=== PATIENT | female | born 1960 | race Caucasian/White ===

== ENCOUNTER → 2018-03-29 09:54 | Outpatient (CLI) | payer BC, SELFPAY ==
[2018-03-29 10:09] LABS: RBC Urine None Seen (0-5/HPF)
[2018-03-29 10:35] LABS: Add Manual Diff / Slide Review NO; Appearance Urine UA SL CLOUDY; Basophils Percent Auto 0.6 % (0-2); Bilirubin Urine UA NEGATIVE (NEGATIVE); Color Urine UA YELLOW; Eosinophils Percent Auto 1.5 % (2-4); Glucose Urine UA NEGATIVE (Normal); Hemoglobin 13.6 g/dL (12.0-16.0); Ketones Urine UA 1+ (NEGATIVE); Leukocyte Esterase Urine UA NEGATIVE (NEGATIVE); Lymphocytes Percent Auto 11.1 % (25-40); Mean Corpuscular HGB Conc 34.1 % (30-36); Mean Corpuscular Hemoglobin 33.4 PG (26-34); Monocytes Percent Auto 7.1 % (3-14); Neutrophils Absolute Auto 5800 /uL (3000-5900); Neutrophils Percent Auto 79.7 % (50-75); Nitrite Urine UA Negative (Negative); Occult Blood Urine UA NEGATIVE (Negative); Platelet Count 249 X10^3/uL (150-400); Protein Urine UA 2+ (Negative); Red Blood Cell Count 4.08 X10^6/uL (4.0-5.2); Red Cell Distribution Width 14.2 % (11.6-14.8); Specific Gravity Urine UA >=1.030 (1.000-1.035); Urobilinogen Urine UA 0.2 E.U./dL (0.2); White Blood Cell Count 7.3 X10^3/uL (4.5-11.0)
[2018-03-29 10:49] LABS: Amorphous Sediment Urine 1+; Bacteria Urine Moderate (10-30); Squamous Epithelial Cell Urine 10-30 /HPF; WBC Urine 10-30/HPF (0-5/HPF)
[2018-03-29 10:50] LABS: Culture Indicated Urine Cult Not Indicated; Mucus Urine 3+ (Negative)
[2018-03-29 11:05] LABS: Alanine Aminotransferase 28 IU/L (9-52); Albumin 4.5 g/dL (3.5-5.0); Albumin Globulin Ratio 0.9 (1.0-2.8); Alkaline Phosphatase 114 U/L (38-126); Aspartate Aminotransferase 29 IU/L (14-36); BUN Creatinine Ratio 24.4 (6-22); Bilirubin Total 0.7 mg/dL (0.2-1.3); Blood Urea Nitrogen 22 mg/dL (7-17); Calcium 9.6 mg/dL (8.4-10.2); Carbon Dioxide 27 mmol/L (22-32); Chloride 101 mmol/L (98-107); Cholesterol 170 mg/dL (140-199); Estimated Glomerular Filt Rate > 60.0 mL/min (>60); Globulin 4.9 g/dL (1.7-4.1); Glucose 79 mg/dL (70-100); HDL Cholesterol 92 mg/dL (40-60); HEMOLYSIS 18 (0-50); LDL Cholesterol Calculated 43 mg/dL (<100); Potassium 4.6 mmol/L (3.4-5.1); Sodium 142 mmol/L (137-145); Total Protein 9.4 g/dL (6.3-8.2); Triglycerides 177 mg/dL (35-150)
[2018-03-29 11:32] LABS: Creatinine Urine Random 453.6 mg/dL; Microalbumi Creatinin Ratio Ur 70.9 ug/mg CR (<30); Microalbumin Urine Random 32.2 mg/dL (0-1.6)
[2018-03-29 11:33] LABS: Thyroid Stimulating Hormone 3.27 uIU/mL (0.47-4.68)
== END ==
PROVIDERS: PCP Family Medicine; Visit Provider Dermatology
DX: K50.90 Crohn's disease, unspecified, without complications (principal); Z51.81 Encounter for therapeutic drug level monitoring; Z13.29 Encounter for screening for other suspected endocrine disorder
CPT/HCPCS: 36415; 80053; 80061; 81001; 82043; 82570; 84443; 85025

== ENCOUNTER → 2018-06-12 18:15 | Outpatient (CLI) | payer BC, SELFPAY | PROVIDERS: PCP Family Medicine; Visit Provider Physician Assistant | DX: R30.0 Dysuria (principal) | CPT/HCPCS: 87077; 87086 ==

== ENCOUNTER → 2018-07-17 14:03 | Outpatient (CLI) | payer BC, SELFPAY | PROVIDERS: PCP Family Medicine; Visit Provider Nurse Practitioner Family | DX: Z79.899 Other long term (current) drug therapy (principal) | CPT/HCPCS: 93005 ==

== ENCOUNTER → 2018-12-09 12:46 | Outpatient (CLI) | payer BC, SELFPAY ==
[2018-12-09 13:53] LABS: Add Manual Diff / Slide Review NO; Basophils Absolute Auto 100 /uL (0-100); Basophils Percent Auto 0.8 % (0-2); Eosinophils Absolute Auto 100 /uL (0-450); Eosinophils Percent Auto 1.9 % (2-4); Hematocrit 40.6 % (36-46); Hemoglobin 13.8 g/dL (12.0-16.0); Lymphocytes Absolute Auto 1900 /uL (1100-4500); Lymphocytes Percent Auto 30.6 % (25-40); Mean Corpuscular HGB Conc 33.9 % (30-36); Mean Corpuscular Hemoglobin 32.7 PG (26-34); Mean Corpuscular Volume 96.4 fL (80-100); Monocytes Absolute Auto 600 /uL (0-900); Monocytes Percent Auto 9.6 % (3-14); Neutrophils Absolute Auto 3600 /uL (1500-7000); Neutrophils Percent Auto 57.1 % (50-75); Platelet Count 216 X10^3/uL (150-400); Red Blood Cell Count 4.22 X10^6/uL (4.0-5.2); Red Cell Distribution Width 13.6 % (11.6-14.8); White Blood Cell Count 6.3 X10^3/uL (4.5-11.0)
[2018-12-09 14:07] LABS: Alanine Aminotransferase 37 IU/L (9-52); Albumin 4.3 g/dL (3.5-5.0); Alkaline Phosphatase 83 U/L (38-126); Aspartate Aminotransferase 34 IU/L (14-36); BUN Creatinine Ratio 35.7 (6-22); Bilirubin Total 0.5 mg/dL (0.2-1.3); Bilirubin Unconjugated 0.2 mg/dL (0.0-1.1); Blood Urea Nitrogen 25 mg/dL (7-17); Calcium 9.1 mg/dL (8.4-10.2); Carbon Dioxide 27 mmol/L (22-32); Chloride 98 mmol/L (98-107); Estimated Glomerular Filt Rate > 60.0 mL/min (>60); Globulin 4.4 g/dL (1.7-4.1); Glucose 82 mg/dL (70-100); HEMOLYSIS 23 (0-50); Potassium 4.5 mmol/L (3.4-5.1); Sodium 136 mmol/L (137-145); Total Protein 8.7 g/dL (6.3-8.2)
== END ==
PROVIDERS: PCP Family Medicine; Visit Provider Dermatology
DX: L40.0 Psoriasis vulgaris (principal)
CPT/HCPCS: 36415; 80053; 80076; 85025

== ENCOUNTER 2018-12-24 12:42 | Emergency (ER) | payer BC, SELFPAY ==
[2018-12-24 12:59] VITALS: BP 104/74; PULSE 119; RESP 18; TEMP 36.9; O2SAT 90
[2018-12-24 13:37] LABS: Add Manual Diff / Slide Review NO; Basophils Absolute Auto 0 /uL (0-100); Basophils Percent Auto 0.3 % (0-2); Eosinophils Absolute Auto 0 /uL (0-450); Eosinophils Percent Auto 0.4 % (2-4); Hematocrit 42.2 % (36-46); Hemoglobin 14.2 g/dL (12.0-16.0); Lymphocytes Absolute Auto 1100 /uL (1100-4500); Lymphocytes Percent Auto 11.5 % (25-40); Mean Corpuscular HGB Conc 33.7 % (30-36); Mean Corpuscular Hemoglobin 32.1 PG (26-34); Mean Corpuscular Volume 95.4 fL (80-100); Monocytes Absolute Auto 600 /uL (0-900); Neutrophils Absolute Auto 7800 /uL (1500-7000); Neutrophils Percent Auto 81.8 % (50-75); Platelet Count 171 X10^3/uL (150-400); Red Blood Cell Count 4.43 X10^6/uL (4.0-5.2); Red Cell Distribution Width 13.4 % (11.6-14.8); White Blood Cell Count 9.5 X10^3/uL (4.5-11.0)
--- NOTE | 2018-12-24 13:41 | DI.RAD.S_ITS ---
PROCEDURE: XR CHEST 1V INDICATIONS: cough, fever, chills TECHNIQUE: One view of the chest was acquired. COMPARISON: None. FINDINGS: Surgical changes and devices: None. Lungs and pleura: Mild diffuse right greater than left reticular nodular pulmonary density.. No pleural effusions or pneumothorax. Mediastinum: Mediastinal contours appear normal. Heart size is normal. Bones and chest wall: No suspicious bony lesions. Overlying soft tissues appear unremarkable. IMPRESSION: Mild atypical pneumonia. Dictated by: Juhi Ayala M.D. on 12/24/2018 at 13:58 Approved by: Juhi Ayala M.D. on 12/24/2018 at 13:58
[2018-12-24 13:51] LABS: Alanine Aminotransferase 28 IU/L (9-52); Albumin 4.3 g/dL (3.5-5.0); Albumin Globulin Ratio 0.9 (1.0-2.8); Alkaline Phosphatase 112 U/L (38-126); Aspartate Aminotransferase 43 IU/L (14-36); BUN Creatinine Ratio 34.5 (6-22); Bilirubin Total 0.5 mg/dL (0.2-1.3); Blood Urea Nitrogen 38 mg/dL (7-17); Calcium 8.9 mg/dL (8.4-10.2); Carbon Dioxide 29 mmol/L (22-32); Chloride 95 mmol/L (98-107); Estimated Glomerular Filt Rate 51.4 mL/min (>60); Glucose 166 mg/dL (70-100); HEMOLYSIS < 15 (0-50); Lactate (Lactic Acid) 1.6 mmol/L (0.7-2.1); Sodium 137 mmol/L (137-145); Total Protein 9.3 g/dL (6.3-8.2)
--- NOTE | 2018-12-24 13:53 | ED_ITS ---
HPI - SOB/Dyspnea General Chief Complaint: Shortness of Breath/Dyspnea Stated Complaint: COUGH,FEVER NOT EATING WELL Time Seen by Provider: 12/24/18 13:08 Source: patient Mode of arrival: ambulatory Limitations: no limitations History of Present Illness 58-year-old female former smoker with history of severe Crohn's disease requiring ileostomy on immunosuppressive therapy presents with 1 week of worsening fever, chills as well as nausea, vomiting, diarrhea and cough with shortness of breath. She has had a profoundly decreased appetite and is now dizzy, weak and has trouble ambulating. She has been exposed to other ill persons and waited until today because she was hoping she would just get over it. MD Complaint: shortness of breath and cough Onset (ago): day(s) Context: recent illness Severity: moderate Consistency/Duration: constant Relieving factors: nothing Exacerbating factors: exertion Treatment prior to arrival: none Related Data Home oxygen amount: none Home Medications Medication Instructions Recorded Confirmed methadone 10 mg tablet 40 mg PO BID #0 tab 03/08/18 12/24/18 erythromycin with ethanol 1 applic TOPICAL [id number] 12/24/18 12/24/18 trazodone 25 mg PO BEDTIME 12/24/18 12/24/18 Previous Rx's Medication Instructions Recorded albuterol sulfate 1 puff INHALATION Q4-6H PRN #8.5 12/24/18 gram azithromycin See Rx Instructions .ROUTE 12/24/18 .COMPLEX #6 tab ondansetron 4 mg PO TID-QID PRN #10 tab 12/24/18 Allergies Allergy/AdvReac Type Severity Reaction Status Date / Time acetaminophen [From VICODIN] Allergy Unknown Verified 12/24/18 12:59 clonazepam [From KLONOPIN] Allergy Unknown Verified 12/24/18 12:59 codeine [CODEINE] Allergy Unknown Verified 12/24/18 12:59 doxycycline [DOXYCYCLINE] Allergy Unknown Verified 12/24/18 12:59 droperidol [From Inapsine] Allergy Unknown Verified 12/24/18 13:30 hydrocodone [From VICODIN] Allergy Unknown Verified 12/24/18 12:59 levofloxacin [From Levaquin] Allergy Unknown Verified 12/24/18 13:30 meperidine [From DEMEROL] Allergy Unknown Verified 12/24/18 12:59 metoclopramide Allergy Unknown Verified 12/24/18 12:59 [METOCLOPRAMIDE] NSAIDS (Non-Steroidal Allergy Unknown Verified 12/24/18 12:59 Anti-Inflamma [NSAIDS (NON-STEROIDAL ANTI-INFLAMMA] prochlorperazine Allergy Unknown Verified 12/24/18 12:59 [From COMPAZINE] Review of Systems Constitutional Reports chills, Reports fever(s), Denies lethargy and Reports weakness Eyes Denies change in vision, Denies eye discharge, Denies irritation and Denies loss of vision ENT Ears, Nose, Mouth, and Throat: Denies change in voice, Denies neck pain and Denies sore throat Cardiovascular Denies chest pain, Denies irregular heart rhythm, Denies lightheadedness, Denies palpitations, Reports dyspnea, Denies dyspnea on exertion and Denies orthopnea Respiratory Reports cough, Reports dyspnea, Denies dyspnea on exertion and Denies wheezing Gastrointestinal Gastrointestinal: Denies abdominal pain, Denies change in bowel habits, Reports diarrhea, Reports nausea and Reports vomiting Genitourinary Denies hematuria, Denies flank pain, Denies urinary incontinence and Denies urinary urgency Musculoskeletal Denies neck pain Integumentary/Breasts Denies pruritus, Denies erythema, Denies rash and Denies wounds Neurologic Denies confusion, Denies loss of vision and Reports weakness Psychiatric Denies anxiety, Denies confusion, Denies depression, Denies homicidal ideation and Denies suicidal ideation Endocrine Denies palpitations Hematologic/Lymphatic Denies easy bruising Allergic/Immunologic Denies wheezing [facility] Medical History Allergic rhinitis (Chronic) Crohns disease (Chronic Unknown) Lumbar disc disease (Chronic) Migraines (Chronic) Psoriasis (Chronic) Anemia (Resolved) Deep vein thrombosis (Resolved) GI bleed (Resolved) MRSA (methicillin resistant Staphylococcus aureus) (Resolved) Pulmonary embolism (Resolved) SBO (small bowel obstruction) (Resolved) Septic arthritis (Resolved) Shoulder pain (Resolved) Surgical History History of spinal fusion (Resolved) Hx of cholecystectomy (Resolved) Hx of colectomy (Resolved) Hx of hysterectomy (Resolved) Hx of surgical procedure (Resolved) Family History Father Diabetes mellitus Heart disease Hypertension Hyperlipidemia Mother No problems noted. Grandmother Cancer Social History Smoking Status: Former smoker Family History Father Diabetes mellitus Heart disease Hypertension Hyperlipidemia Mother No problems noted. Grandmother Cancer Social History Smoking Status: Former smoker Exam Narrative Exam Narrative: GENERAL: 58F appears older than stated age, ill-appearing, some increased work of breathing and dry mucous membranes HEAD: Atraumatic. Normocephalic. No temporal or scalp tenderness. EYES: Pupils equal round and reactive. Extraocular motions intact. No scleral icterus. No injection or drainage. ENT: Dry mucous membranes. Nose without bleeding, purulent drainage or septal hematoma. Throat without erythema, tonsillar hypertrophy or exudate. Uvula midline. Airway patent. NECK: Trachea midline. No JVD or lymphadenopathy. Supple, nontender, no meningeal signs. CARDIOVASCULAR: Regular rate and rhythm without murmurs, gallops, or rubs. RESPIRATORY: Rhonchorous breath sounds with some prolonged expiratory phase and mild expiratory wheeze. Mildly tachypneic GASTROINTESTINAL: Abdomen soft, non-tender, nondistended. No hepato- splenomegaly, or palpable masses. No guarding. EXTREMITIES: No clubbing, cyanosis, or edema. No joint tenderness, effusion, or edema noted. BACK: Nontender without deformity or crepitance. No flank tenderness. NEURO: AOx3. SKIN: No rash or erythema. Initial Vital Signs Initial Vital Signs: Vital Signs Temperature 98.5 F 12/24/18 12:59 Pulse Rate 119 H 12/24/18 12:59 Respiratory Rate 18 12/24/18 12:59 Blood Pressure 104/74 12/24/18 12:59 Pulse Oximetry 90 L 12/24/18 12:59 Course Orders Ordered: ED Orders 12/24/18 13:25 Complete Blood Count AUTO DIFF Stat Comprehensive Metabolic Panel Stat Lactate (Lactic Acid) Stat Procalcitonin Stat 12/24/18 13:41 XR chest 1V Stat 12/24/18 13:55 Blood Culture Stat 12/24/18 14:05 Influenza A and B by PCR Rapid Stat Discontinued Medications Albuterol (Ventolin) 2.5 mg INH [id number] PRN PRN Reason: Shortness Of Breath Last Admin: 12/24/18 16:23 Dose: 2.5 mg Sodium Chloride (Normal Saline 0.9%) 1,000 mls @ 1,000 mls/hr IV BOLUS ONE Stop: 12/24/18 14:24 Last Infusion: 12/24/18 15:30 Dose: 0 mls/hr Admin: 12/24/18 14:21 Dose: 1,000 mls/hr Sodium Chloride (Normal Saline 0.9%) 1,000 mls @ 1,000 mls/hr IV BOLUS ONE Stop: 12/24/18 16:51 Last Infusion: 12/24/18 16:47 Dose: 0 mls/hr Admin: 12/24/18 15:45 Dose: 1,000 mls/hr Ondansetron HCl (Zofran) 4 mg IV Q4HR PRN PRN Reason: Nausea And Vomiting Reevaluation(s) Reevaluation #1: Patient feeling much better after the above-stated therapies. Vital Signs - 8 hr 12/24/18 12:59 12/24/18 14:00 12/24/18 15:00 Temperature 98.5 F Pulse Rate 119 H 89 79 Respiratory Rate 18 20 16 Blood Pressure 104/74 Blood Pressure [Right Arm] 99/72 103/73 Pulse Oximetry 90 L 94 12/24/18 16:23 12/24/18 16:47 Temperature Pulse Rate 87 78 Respiratory Rate 21 Blood Pressure Blood Pressure [Right Arm] 106/63 Pulse Oximetry 93 94 MDM - SOB/Dyspnea Lab Data Result diagrams: 12/24/18 13:25 12/24/18 13:25 Lab Results 12/24/18 12/24/18 12/24/18 Range/Units 13:25 13:25 13:25 WBC 9.5 (4.5-11.0) X10^3/uL RBC 4.43 (4.0-5.2) X10^6/uL Hgb 14.2 (12.0-16.0) g/dL Hct 42.2 (36-46) % MCV 95.4 (80-100) fL MCH 32.1 (26-34) PG MCHC 33.7 (30-36) % RDW 13.4 (11.6-14.8) % Plt Count 171 (150-400) X10^3/uL Neut % (Auto) 81.8 H (50-75) % Lymph % (Auto) 11.5 L (25-40) % Sebastian % (Auto) 6.0 (3-14) % Eos % (Auto) 0.4 L (2-4) % Baso % (Auto) 0.3 (0-2) % Neut # (Auto) 7800 H (7623-6527) /uL Lymph # (Auto) 1100 (5687-1362) /uL Sebastian # (Auto) 600 (0-900) /uL Eos # (Auto) 0 (0-450) /uL Baso # (Auto) 0 (0-100) /uL Sodium 137 (137-145) mmol/L Potassium 4.0 (3.4-5.1) mmol/L Chloride 95 L (98-107) mmol/L Carbon Dioxide 29 (22-32) mmol/L BUN 38 H (7-17) mg/dL Creatinine 1.10 H (0.52-1.04) mg/dL Estimated GFR 51.4 L (>60) mL/min BUN/Creatinine Ratio 34.5 H (6-22) Glucose 166 H (70-100) mg/dL Lactate (0.7-2.1) mmol/L Calcium 8.9 (8.4-10.2) mg/dL Total Bilirubin 0.5 (0.2-1.3) mg/dL AST 43 H (14-36) IU/L ALT 28 (9-52) IU/L Alkaline Phosphatase 112 (38-126) U/L Total Protein 9.3 H (6.3-8.2) g/dL Albumin 4.3 (3.5-5.0) g/dL Globulin 5.0 H (1.7-4.1) g/dL Albumin/Globulin Ratio 0.9 L (1.0-2.8) Procalcitonin < 0.05 (<0.5) ng/mL Influenza A & B (PCR) (Negative) 12/24/18 12/24/18 Range/Units 13:25 14:05 WBC (4.5-11.0) X10^3/uL RBC (4.0-5.2) X10^6/uL Hgb (12.0-16.0) g/dL Hct (36-46) % MCV (80-100) fL MCH (26-34) PG MCHC (30-36) % RDW (11.6-14.8) % Plt Count (150-400) X10^3/uL Neut % (Auto) (50-75) % Lymph % (Auto) (25-40) % Sebastian % (Auto) (3-14) % Eos % (Auto) (2-4) % Baso % (Auto) (0-2) % Neut # (Auto) (9633-9011) /uL Lymph # (Auto) (3817-8939) /uL Sebastian # (Auto) (0-900) /uL Eos # (Auto) (0-450) /uL Baso # (Auto) (0-100) /uL Sodium (137-145) mmol/L Potassium (3.4-5.1) mmol/L Chloride (98-107) mmol/L Carbon Dioxide (22-32) mmol/L BUN (7-17) mg/dL Creatinine (0.52-1.04) mg/dL Estimated GFR (>60) mL/min BUN/Creatinine Ratio (6-22) Glucose (70-100) mg/dL Lactate 1.6 (0.7-2.1) mmol/L Calcium (8.4-10.2) mg/dL Total Bilirubin (0.2-1.3) mg/dL AST (14-36) IU/L ALT (9-52) IU/L Alkaline Phosphatase (38-126) U/L Total Protein (6.3-8.2) g/dL Albumin (3.5-5.0) g/dL Globulin (1.7-4.1) g/dL Albumin/Globulin Ratio (1.0-2.8) Procalcitonin (<0.5) ng/mL Influenza A & B (PCR) Negative (Negative) Discharge Plan Departure Patient Disposition: Home Clinical Impression: Gastroenteritis, Atypical pneumonia Discharge Date/Time: 12/24/18 16:40 Interventions: ED Discharge Assessment Last Done: 12/24/18 16:56 Instructions: DI for Atypical Pneumonia Activity Restrictions/Additional Instructions: 1. Drink plenty of fluids with frequent small sips. 2. For the next 24 hours a clear liquid diet is advised. After that please employ a brat diet which would include bananas, rice, apples, toast. 3. Please take medications as directed. Her prescriptions have been electronically transmitted to [facility] at your request 4. Please follow-up with your doctor in the next 1-2 days. Call the office for an appointment. 5. Please return to the emergency Department for any worsening or persistent symptoms, such as increasing pain or fever. Prescriptions: New azithromycin 250 mg tablet See Rx Instructions .ROUTE .COMPLEX Qty: 6 RF: 0 ondansetron 4 mg tablet,disintegrating 4 mg PO TID-QID PRN (Reason: nausea and vomiting) Qty: 10 RF: 0 albuterol sulfate 90 mcg/actuation HFA aerosol inhaler 1 puff INHALATION Q4-6H PRN (Reason: shortness of breath or wheezing) Qty: 8.5 RF: 0 No Action methadone 10 mg tablet 40 mg PO BID Qty: 0 RF: 0 trazodone 50 mg tablet 25 mg PO BEDTIME RF: 0 erythromycin with ethanol 2 % solution 1 applic topical [id number] RF: 0 Referrals: Maggy Salazar, [Primary Care Provider] - Stand Alone Forms: Work Release Note
[2018-12-24 14:00] VITALS: BP 99/72; PULSE 89; RESP 20
[2018-12-24 14:05] LABS: Procalcitonin < 0.05 ng/mL (<0.5)
[2018-12-24] MEDS: SODIUM CHLORIDE 0.9% 1,000 ML 1000 ML IV ×2 (14:21→15:45)
[2018-12-24 14:30] LABS: Influenza A and B by PCR Rapid Negative (Negative)
[2018-12-24 15:00] VITALS: BP 103/73; PULSE 79; RESP 16; O2SAT 94
[2018-12-24 16:23] VITALS: PULSE 87; O2SAT 93
[2018-12-24] MEDS: ALBUTEROL 2.5 MG/3 ML NEB (ADULT) INH (16:23)
[2018-12-24 16:47] VITALS: BP 106/63; PULSE 78; RESP 21; O2SAT 94
== END 2018-12-24 16:40 | disposition home or self-care (01) ==
PROVIDERS: Emergency Provider Emergency Medicine; PCP Family Medicine
DX: J18.9 Pneumonia, unspecified organism (principal)
CPT/HCPCS: 36591; 71045; 80053; 83605; 84145; 85025; 87040; 87400; 94640; 96360; 96361; 99283; 99284; J7613

== ENCOUNTER → 2019-12-02 12:00 | Outpatient (CLI) | payer OTHER, SELFPAY ==
--- NOTE | 2019-12-02 12:03 | DI.RAD.S_ITS ---
PROCEDURE: XR CHEST 2V INDICATIONS: LLobe crackles and wheeze, r/o pneumonia TECHNIQUE: 2 views of the chest were acquired. COMPARISON: [facility], CR, XR CHEST 1V, 12/24/2018, 13:45. FINDINGS: Surgical changes and devices: None. Lungs and pleura: Lungs are clear. No pleural effusions or pneumothorax. Mediastinum: Mediastinal contours are normal. Heart size is normal. Bones and chest wall: No suspicious bony abnormalities. Soft tissues appear unremarkable. IMPRESSION: Relatively large lung volumes, suspect COPD, but no pneumonia found. Dictated by: Bhavin Roberts M.D. on 12/02/2019 at 12:48 Approved by: Bhavin Roberts M.D. on 12/02/2019 at 12:48
== END ==
PROVIDERS: PCP Family Medicine; Referring Provider Nurse Practitioner; Visit Provider Nurse Practitioner
DX: R06.2 Wheezing (principal)
CPT/HCPCS: 71046

== ENCOUNTER 2020-01-26 18:32 | Emergency (ER) | payer OTHER, SELFPAY ==
[2020-01-26 18:36] VITALS: BP 167/106; PULSE 86; RESP 18; TEMP 36.6; O2SAT 99
--- NOTE | 2020-01-26 18:50 | ED_ITS ---
HPI - Extremity Injury (Upper) General Chief Complaint: Extremity Injury, Upper Stated Complaint: Sharp pains shooting up L side of neck and arm Time Seen by Provider: 01/26/20 18:47 Source: patient Mode of arrival: Ambulatory Limitations: no limitations History of Present Illness HPI narrative: 59-year-old female smoker with history of DVT, PE and Crohn's presents with a chief complaint of a sudden onset pain in her left medial arm into her anterior neck this evening at about 6:00 p.m.. The pain comes and goes , is sharp and stabbing in nature and has no provocation or palliation. She denies any neurologic symptoms such as blurred vision, trouble with speech nor chest pain or shortness of breath. She is not dizzy nor weak or lightheaded. Over the past weeks to months she has become increasingly hypertensive and today's diastolic of 106 is the high she has ever had. She is asymptomatic on my exam MD complaint: injury to: left Onset (ago): hour(s) Other injuries: none Handedness: right Associated symptoms: denies other symptoms Related Data Home Medications Medication Instructions Recorded Confirmed methadone 10 mg tablet 40 mg PO BID #0 tab 03/08/18 12/02/19 erythromycin with ethanol 1 applic TOPICAL [id number] 12/24/18 12/02/19 trazodone 25 mg PO BEDTIME 12/24/18 12/02/19 Previous Rx's Medication Instructions Recorded albuterol sulfate 1 puff INHALATION Q4-6H PRN #8.5 12/24/18 gram ondansetron 4 mg PO TID-QID PRN #10 tab 12/24/18 azithromycin 250 mg tablet See Rx Instructions PO .COMPLEX #6 12/02/19 tab Allergies Allergy/AdvReac Type Severity Reaction Status Date / Time acetaminophen [From VICODIN] Allergy Unknown Verified 12/02/19 11:07 clonazepam [From KLONOPIN] Allergy Unknown Verified 12/02/19 11:07 codeine [CODEINE] Allergy Unknown Verified 12/02/19 11:07 doxycycline [DOXYCYCLINE] Allergy Unknown Verified 12/02/19 11:07 droperidol [From Inapsine] Allergy Unknown Verified 12/02/19 11:07 hydrocodone [From VICODIN] Allergy Unknown Verified 12/02/19 11:07 levofloxacin [From Levaquin] Allergy Unknown Verified 12/02/19 11:07 meperidine [From DEMEROL] Allergy Unknown Verified 12/02/19 11:07 metoclopramide Allergy Unknown Verified 12/02/19 11:07 [METOCLOPRAMIDE] NSAIDS (Non-Steroidal Allergy Unknown Verified 12/02/19 11:07 Anti-Inflamma [NSAIDS (NON-STEROIDAL ANTI-INFLAMMA] prochlorperazine Allergy Unknown Verified 12/02/19 11:07 [From COMPAZINE] Review of Systems Constitutional Constitutional: Denies chills, Denies fatigue, Denies fever(s), Denies frequent falls, Denies lethargy and Denies weakness Eyes Eyes: Denies change in vision, Denies eye discharge, Denies irritation and De nies loss of vision ENT Ears, Nose, Mouth, and Throat: Denies change in voice, Denies dizziness, Reports neck pain (Episodic anterior), Denies sore throat and Denies throat swelling Cardiovascular Cardiovascular: Denies chest pain, Denies irregular heart rhythm, Denies lightheadedness, Denies palpitations, Denies dyspnea, Denies dyspnea on exertion and Denies orthopnea Respiratory Respiratory: Denies cough, Denies dyspnea, Denies dyspnea on exertion and Denies wheezing Gastrointestinal Gastrointestinal: Denies abdominal pain, Denies change in bowel habits, Denies diarrhea, Denies nausea and Denies vomiting Genitourinary Genitourinary: Denies hematuria, Denies flank pain, Denies urinary incontinence and Denies urinary urgency Musculoskeletal Musculoskeletal: Denies back pain, Denies muscle weakness, Reports neck pain (Episodic anterior), Denies numbness, Reports radiating pain into limb and Denies tingling Integumentary/Breasts Skin/Breast: Denies pruritus, Denies erythema, Denies rash and Denies wounds Neurologic Neurologic: Denies behavioral changes, Denies confusion, Denies dizziness, Denies frequent falls, Denies loss of vision, Denies numbness, Denies tingling and Denies weakness Psychiatric Psychiatric: Denies anxiety, Denies behavioral changes, Denies confusion, Denies depression, Denies homicidal ideation and Denies suicidal ideation Endocrine Endocrine: Denies fatigue, Denies flushing and Denies palpitations Hematologic/Lymphatic Hematologic/Lymphatic: Denies easy bruising Allergic/Immunologic Allergic/Immunologic: Denies urticaria, Denies throat swelling and Denies wheezing Patient History Medical History Allergic rhinitis (Chronic) Anemia (Resolved) Crohns disease (Chronic Unknown) Deep vein thrombosis (Resolved) GI bleed (Resolved) Lumbar disc disease (Chronic) Migraines (Chronic) MRSA (methicillin resistant Staphylococcus aureus) (Resolved) Psoriasis (Chronic) Pulmonary embolism (Resolved) SBO (small bowel obstruction) (Resolved) Septic arthritis (Resolved) Shoulder pain (Resolved) Surgical History History of spinal fusion (Resolved) Hx of cholecystectomy (Resolved) Hx of colectomy (Resolved) Hx of hysterectomy (Resolved) Hx of surgical procedure (Resolved) Family History Father Diabetes mellitus Heart disease Hypertension Hyperlipidemia Mother No problems noted. Grandmother Cancer Social History Smoking Status: Current some day smoker Smoking Status: Current some day smoker Exam Narrative Exam Narrative: GENERAL: [59] year old patient appears stated age. Well- nourished, well-developed patient, in mild distress. HEAD: Atraumatic. Normocephalic. EYES: Pupils equal round and reactive. Extraocular motions intact. No scleral icterus. No injection or drainage. ENT: Nose without bleeding, purulent drainage. Throat without erythema, tonsillar hypertrophy or exudate. Airway patent. NECK: Trachea midline. Non tender CARDIOVASCULAR: Regular rate and rhythm without murmurs, gallops, or rubs. RESPIRATORY: Clear to auscultation. Breath sounds equal bilaterally. No wheezes, rales, or rhonchi. GASTROINTESTINAL: Abdomen soft, non-tender, nondistended. EXTREMITIES: No edema or joint tenderness. No reproducible pain in left upper extremity, no swelling, no redness, no warmth, induration. Full strength and sensation present BACK: Nontender without deformity or crepitance. No flank tenderness. NEURO: AOx3. SKIN: No rash or erythema of visible areas Initial Vital Signs Initial Vital Signs: Vital Signs Temperature 97.9 F 01/26/20 18:36 Pulse Rate 86 01/26/20 18:36 Respiratory Rate 18 01/26/20 18:36 Blood Pressure 167/106 H 01/26/20 18:36 Pulse Oximetry 99 01/26/20 18:36 Course Orders Ordered: ED Orders 01/26/20 18:49 EKG-12 Lead Stat 01/26/20 19:00 US periph venous up extrem lt Stat 01/26/20 19:22 Basic Metabolic Panel Stat Complete Blood Count AUTO DIFF Stat Prothrombin Time INR Stat Troponin & CK Cardiac Panel Stat Vital Signs Vital signs: Vital Signs - 8 hr 01/26/20 18:36 01/26/20 20:39 Temperature 97.9 F 98.6 F Pulse Rate 86 70 Respiratory Rate 18 16 Blood Pressure 167/106 H Blood Pressure [Right Arm] 149/91 H Pulse Oximetry 99 98 MDM - Extremity Injury (Upper) Lab Data Result diagrams: 01/26/20 19:22 01/26/20 19:22 Labs: Lab Results 01/26/20 01/26/20 01/26/20 Range/Units 19:22 19:22 19:22 WBC 6.1 (4.5-11.0) X10^3/uL RBC 3.86 L (4.0-5.2) X10^6/uL Hgb 12.7 (12.0-16.0) g/dL Hct 37.2 (36-46) % MCV 96.3 (80-100) fL MCH 32.9 (26-34) PG MCHC 34.2 (30-36) % RDW 14.1 (11.6-14.8) % Plt Count 211 (150-400) X10^3/uL Neut % (Auto) 59.5 (50-75) % Lymph % (Auto) 28.4 (25-40) % [place] % (Auto) 8.5 (3-14) % Eos % (Auto) 3.1 (2-4) % Baso % (Auto) 0.5 (0-2) % Neut # (Auto) 3600 (9871-8304) /uL Lymph # (Auto) 1700 (1076-5095) /uL [place] # (Auto) 500 (0-900) /uL Eos # (Auto) 200 (0-450) /uL Baso # (Auto) 0 (0-100) /uL PT 10.6 (10.1-12.7) SECONDS INR 0.9 (0.9-1.3) Sodium 136 L (137-145) mmol/L Potassium 3.7 (3.4-5.1) mmol/L Chloride 101 (98-107) mmol/L Carbon Dioxide 29 (22-32) mmol/L BUN 23 H (7-17) mg/dL Creatinine 0.75 (0.52-1.04) mg/dL Estimated GFR > 60.0 (>60) mL/min BUN/Creatinine Ratio 30.7 H (6-22) Glucose 91 (70-100) mg/dL Calcium 9.1 (8.4-10.2) mg/dL Total Creatine Kinase 65 (30-135) U/L CK-MB (CK-2) TNP CK-MB (CK-2) Rel Index TNP Troponin I < 0.012 (0.01-0.034) ng/mL Imaging Data US - DVT: Radiologist's Impression: [address] [address] Ultrasound Report Signed Patient: Amy Romero MMR#: [id number] : 2Acct:[id number] Age/Sex: 59 / FDate of Service: 01/26/20 Loc: ED Accession Number: [id number] Procedure: US periph venous up extrem lt Ordering Provider: Live Wilde D.O. PROCEDURE: US PERIPH VENOUS UP EXTREM LT INDICATIONS: PAIN MEDIAL LT ARM INTO NECK, HX DVT/PE, PORT IN LT ARM TECHNIQUE: Real-time imaging, as well as color and pulse Doppler interrogation, was performed of the left upper extremity deep veins from the inferior neck to the antecubital fossa. COMPARISON: None. FINDINGS: The internal jugular vein, visualized portions of the subclavian vein, axillary, and brachial veins are free of intraluminal thrombus. Where physically possible, the veins are normally compressible. Color and pulse Doppler demonstrate normal intraluminal flow, with expected phasicity and pulsatility. Additional scanning of the cephalic and basilic veins of the superficial system demonstrate normal compressibility, without thrombus. Nonspecific left cervical lymph node measuring 1.5 cm IMPRESSION: No evidence of deep venous thrombosis. Dictated by: Joaquin Muir M.D. on 01/26/2020 at 20:32 Approved by: Joaquin Muir M.D. on 01/26/2020 at 20:33 [facility] Narrative Medical decision making narrative: Patient with vague, intermittent in episodes of left anterior neck pain and radiation into her left arm. She states that it is sharp when present. She denies provocation or palliation. She is not dizzy nor weak or lightheaded. She denies any chest pain or shortness of breath. Cardiac ischemia considered, but lack of associated cardiac equivalents, normal troponin and non ischemic EKG make this less likely. DVT considered, but thought less likely given lack of persistent symptoms, swelling, redness, erythema and negative US. We did discuss the possibility of dissection, but symptoms are completely resolved and no neurologic symptoms present at any point. We discussed the possibility of CTA of head and neck, but she refused given the number of previous CT she's had. She is given return precautions and has had questions answered to her apparent satisfaction. Discharge Plan Departure Patient Disposition: Home Clinical Impression: Neck muscle spasm Discharge Date/Time: 01/26/20 20:55 Instructions: DI for Neck Pain Activity Restrictions/Additional Instructions: *You have been diagnosed with [acute intermittent anterior neck spasm] *What to do: *Take medications as directed *Follow up with your primary care provider in 2-3 days, call for an appointment. Let them know you were seen in the Emergency Department and that we ask that you be seen in follow up *Return to ER if you should have any new, worsening or concerning symptoms, such as [ ] Prescriptions: No Action azithromycin 250 mg tablet See Rx Instructions PO .COMPLEX Qty: 6 RF: 0 methadone 10 mg tablet 40 mg PO BID Qty: 0 RF: 0 trazodone 50 mg tablet 25 mg PO BEDTIME RF: 0 erythromycin with ethanol 2 % solution 1 applic topical [id number] RF: 0 ondansetron 4 mg tablet,disintegrating 4 mg PO TID-QID PRN (Reason: nausea and vomiting) Qty: 10 RF: 0 albuterol sulfate 90 mcg/actuation HFA aerosol inhaler 1 puff INHALATION Q4-6H PRN (Reason: shortness of breath or wheezing) Qty: 8.5 RF: 0 Referrals: [facility] [Outside]
--- NOTE | 2020-01-26 19:00 | DI.US.S_ITS ---
PROCEDURE: US PERIPH VENOUS UP EXTREM LT INDICATIONS: PAIN MEDIAL LT ARM INTO NECK, HX DVT/PE, PORT IN LT ARM TECHNIQUE: Real-time imaging, as well as color and pulse Doppler interrogation, was performed of the left upper extremity deep veins from the inferior neck to the antecubital fossa. COMPARISON: None. FINDINGS: The internal jugular vein, visualized portions of the subclavian vein, axillary, and brachial veins are free of intraluminal thrombus. Where physically possible, the veins are normally compressible. Color and pulse Doppler demonstrate normal intraluminal flow, with expected phasicity and pulsatility. Additional scanning of the cephalic and basilic veins of the superficial system demonstrate normal compressibility, without thrombus. Nonspecific left cervical lymph node measuring 1.5 cm IMPRESSION: No evidence of deep venous thrombosis. Dictated by: Joaquin Muir M.D. on 01/26/2020 at 20:32 Approved by: Joaquin Muir M.D. on 01/26/2020 at 20:33
[2020-01-26 19:28] LABS: Add Manual Diff / Slide Review NO; Basophils Absolute Auto 0 /uL (0-100); Basophils Percent Auto 0.5 % (0-2); Eosinophils Absolute Auto 200 /uL (0-450); Eosinophils Percent Auto 3.1 % (2-4); Hematocrit 37.2 % (36-46); Hemoglobin 12.7 g/dL (12.0-16.0); Lymphocytes Absolute Auto 1700 /uL (1100-4500); Lymphocytes Percent Auto 28.4 % (25-40); Mean Corpuscular HGB Conc 34.2 % (30-36); Mean Corpuscular Hemoglobin 32.9 PG (26-34); Mean Corpuscular Volume 96.3 fL (80-100); Monocytes Absolute Auto 500 /uL (0-900); Monocytes Percent Auto 8.5 % (3-14); Neutrophils Absolute Auto 3600 /uL (1500-7000); Neutrophils Percent Auto 59.5 % (50-75); Platelet Count 211 X10^3/uL (150-400); Red Blood Cell Count 3.86 X10^6/uL (4.0-5.2); Red Cell Distribution Width 14.1 % (11.6-14.8); White Blood Cell Count 6.1 X10^3/uL (4.5-11.0)
[2020-01-26 19:35] LABS: INR 0.9 (0.9-1.3); Prothrombin Time 10.6 SECONDS (10.1-12.7)
[2020-01-26 19:40] LABS: BUN Creatinine Ratio 30.7 (6-22); Blood Urea Nitrogen 23 mg/dL (7-17); Calcium 9.1 mg/dL (8.4-10.2); Carbon Dioxide 29 mmol/L (22-32); Chloride 101 mmol/L (98-107); Creatine Kinase 65 U/L (30-135); Estimated Glomerular Filt Rate > 60.0 mL/min (>60); Glucose 91 mg/dL (70-100); HEMOLYSIS < 15 (0-50); Potassium 3.7 mmol/L (3.4-5.1); Sodium 136 mmol/L (137-145)
[2020-01-26 19:52] LABS: Troponin I < 0.012 ng/mL (0.01-0.034)
[2020-01-26 20:39] VITALS: BP 149/91; PULSE 70; RESP 16; TEMP 37; O2SAT 98
== END 2020-01-26 20:55 | disposition home or self-care (01) ==
PROVIDERS: Emergency Provider Emergency Medicine
DX: M62.838 Other muscle spasm (principal); M79.602 Pain in left arm
CPT/HCPCS: 36415; 80048; 82550; 84484; 85025; 85610; 93005; 93010; 93971; 99281; 99284

== ENCOUNTER 2021-03-25 07:30 | Outpatient (RCR) | payer OTHER, SELFPAY ==
--- NOTE | 2021-03-02 16:37 | PT.OIE ---
Current Diagnoses Primary osteoarthritis, right ankle and foot (03/02/21) Other instability, right foot (03/02/21) Achilles tendinitis, right leg (03/02/21) Past Medical History (Last Reviewed 01/26/20 @ 19:04 by Live Wilde DO) Allergic rhinitis Anemia Crohns disease (Unknown) Deep vein thrombosis GI bleed Lumbar disc disease Migraines MRSA (methicillin resistant Staphylococcus aureus) Psoriasis Pulmonary embolism SBO (small bowel obstruction) Septic arthritis Shoulder pain Past Surgical History (Last Reviewed 01/26/20 @ 19:04 by Live Wilde DO) History of spinal fusion Hx of cholecystectomy Hx of colectomy Hx of hysterectomy Hx of surgical procedure Visit Care Team Role Provider Type Maninder Hubbard DO Primary Care Provider Non-Staff Specialty: Family Practice Address: [address] [place] [address], [id number] Email: Vernon Hampton DPM Attending Provider Non-Staff Referring Provider Specialty: Podiatry Address: [address] [place] [address], [id number] Email: Physical Therapy Initial Evaluation PT-OP-A Visit Information Start: 03/02/21 11:00 Freq: Status: Active Protocol: Document 03/02/21 14:15 AMB (Rec: 03/02/21 16:13 AMB [id number]) Out-Patient Physical Therapy Visit Information Visit Information Visit Type Initial Evaluation Visit Start Time 14:15 Visit Stop Time 15:00 Total Visit Minutes 45 Visit Number 1 PT-OP-B Current Condition Start: 03/02/21 11:00 Freq: Status: Active Protocol: Document 03/02/21 14:15 AMB (Rec: 03/02/21 16:13 AMB [id number]) Current Condition History of Current Condition Onset Date 12/24/20 Current Complaints foot pain/swelling/difficulty walking s/p fusion History of Current Condition Amy had a modified triple arthrodesis with talonavicular and cacaneocuboid joint fusion, fusion of naviculocuneiform and 1st, 2nd , 3rd TMT joints, advancement of posterior tibial tendon and gastrocnemius resection. 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 She has been wearing a boot at home, was originally using a kneeling walker, but now not using an assistive device. Has two steps to enter a single level home, lives alone. 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 Treatment Goals Patient/Caregiver Goals Reduce pain, walk normally Prior Functional Status Baseline Function- ADL's Modified Independent Baseline Function- Work/School Was working with a boot on due to pain for the past year Personal Factors Other Personal Factors That May Effect Crohn's disease multiple Therapy/Recovery surgeries to remove colon- has an ostomy, has been on methadone for years. PT-OP-C Subjective Start: 03/02/21 11:00 Freq: Status: Active Protocol: Document 03/02/21 14:15 AMB (Rec: 03/02/21 15:29 AMB [id number]) Patient Questionnaires Foot & Ankle Ability Measure- ADL and Sports FAAM-ADL Score 38 FAAM-ADL Impairment 40 to 59% Impaired (Score 33- 49) Lower Extremity Functional Scale LEFS Score 19 LEFS Impairment 60 to 79% Impaired (Score 17- 31) OP-PT Pain Assessment Comments Pain Comments Pain ranges from 4-9/10, pt reports current is 6/10. PT-OP-F Manual Assessment Start: 03/02/21 11:00 Freq: Status: Active Protocol: Document 03/02/21 14:15 AMB (Rec: 03/02/21 16:25 AMB [id number]) Manual Assessments Soft Tissue Assessment Soft Tissue Mobility Assessment Tightness and pain with palpation throughout foot, at plantar fascia, at gastrocnemius. Does report numbness/tingling at medial forefoot. Warm throughout, good perfusion, tightness and adhesions at scars. Joint Mobility Assessment Joint Mobility Assessment Stiffness throughout foot, even at toes. PT-OP-G Mobility & Gait Start: 03/02/21 11:00 Freq: Status: Active Protocol: Document 03/02/21 14:15 AMB (Rec: 03/02/21 16:25 AMB [id number]) OP Gait Assessment Comments Gait Comments Antalgic gait- no AD, pt left boot in the car because it is hard to take on and off and she can't drive with it. Asked if she has been walking with the boot at home, says yes. Asked about weightbearing status, she is unsure. PT-OP-J Posture/Palpation/Skin Start: 03/02/21 11:00 Freq: Status: Active Protocol: Document 03/02/21 14:15 AMB (Rec: 03/02/21 16:25 AMB [id number]) Skin Assessment Edema Assessment Right Foot Edema Type Non-Pitting Edema Appearance Firm,Puffy,Shiny Subjective Edema Description Pain,Tightness Circumference Measurement 1 Location R ankle figure8 from mallelous under heel to lateral malleolus Measurement (Centimeters) 46 Comments R is 37 PT-OP-K Range of Motion Start: 03/02/21 11:00 Freq: Status: Active Protocol: Document 03/02/21 14:15 AMB (Rec: 03/02/21 16:25 AMB [id number]) Ankle and Foot Goniometric Range of Motion Ankle and Foot Left Passive Dorsiflexion with Knee Extended 5 Plantarflexion 50 Inversion 30 Eversion 20 Right Passive Testing Position Supine Plantarflexion 30 Inversion 10 Eversion 3 Comments missing 5 degrees of dorsiflexion- pt has night splint but has not been using it PT-OP-M Strength Start: 03/02/21 11:00 Freq: Status: Active Protocol: Document 03/02/21 14:15 AMB (Rec: 03/02/21 16:25 AMB [id number]) Ankle/Foot Strength Ankle and Foot Manual Muscle Testing Right Dorsiflexion (L4) 4- Good- Plantarflexion (S1) 2+ Poor+ PT-OP-T Assessment and Plan Start: 03/02/21 11:00 Freq: Status: Active Protocol: Document 03/02/21 14:15 AMB (Rec: 03/02/21 16:37 AMB [id number]) Physical Therapy Assessment Rehab Potential Rehabilitation Potential Fair Evaluation Complexity Number of Personal Factors/Comorbidities 1-2 Number of Body Systems Impaired 4 or More Clinical Presentation at Evaluation Evolving Impairments Impairments Activity Tolerance,Balance, Edema,Functional Activities, Functional Mobility,Gait,Pain, ROM,Soft Tissue Mobility, Strength Goals Three Impairment Swelling Short Term Goal (STG) Amy will use swelling management techniques to decrease her swelling in her R foot to within 5 cm of her L. STG Duration 4 weeks Vending Machine Collector Goal (LTG) Amy will work a 10 hour shift without pitting edema in her foot. LTG Duration 8 weeks Two Impairment Pain Short Term Goal (STG) Amy will ambuate with her walking boot with pain of 4/10 or less. STG Duration 4 weeks One Impairment Gait Short Term Goal (STG) Amy will ambulate with a sturdy shoe for 6 minutes over smooth terrain. STG Duration 4 weeks Vending Machine Collector Goal (LTG) Amy will ascend 2 stairs with an alternating gait pattern. LTG Duration 8 weeks Assessment Summary Assessment Unfortunately weightbearing restrictions were not available to this therapist at the time of evaluation. We are making every effort to contact the referring provider 's office to get some protocol or progression of weightbearing, as the patient has only been walking in her boot, but states she is supposed to return to work on Sunday. She has significant swelling and very antalgic gait. She has not been wearing compression, icing, or using her night splint. She will benefit from physical therapy to maximize her gait and reduce swelling and pain, but her gait will likely be antalgic for a longer term than normal considering the number of joints that were fused and then length of time she was wearing a boot before surgery. Physical Therapy Plan Frequency and Duration Frequency of Treatment 2x/Week Duration of Treatment 8 weeks Plan of Care Start Date 03/02/21 Plan of Care End Date 04/27/21 Therapeutic Interventions Therapeutic Interventions Aquatic Therapy,Gait Training, Joint Mobilizations,Manual Therapy,Neuromuscular Re- education,Self-Care/Home Management,Soft Tissue Mobilization,Therapeutic Activities,Therapeutic Exercises Modalities Cold Pack/Ice Massage,Electric Stimulation,Hot Packs, Ultrasound Next Visit Focus/Plan Next Note Type Treatment Note Next Visit Plan What is the patient's weightbearing status? Manage swelling.
--- NOTE | 2021-03-02 16:38 | PT.OPPOC ---
Physical, Occupational & Speech Therapy At [facility] Current Diagnoses Primary osteoarthritis, right ankle and foot (03/02/21) Other instability, right foot (03/02/21) Achilles tendinitis, right leg (03/02/21) Visit Care Team Role Provider Type Maninder Hubbard DO Primary Care Provider Non-Staff Specialty: Family Practice Address: [address] [place], [address] Email: Vernon Hampton DPM Attending Provider Non-Staff Referring Provider Specialty: Podiatry Address: [address] [place] [address], [id number] Email: Plan Of Care PT-OP-T Assessment and Plan Start: 03/02/21 11:00 Freq: Status: Active Protocol: Document 03/02/21 14:15 AMB (Rec: 03/02/21 16:37 AMB [id number]) Physical Therapy Assessment Rehab Potential Rehabilitation Potential Fair Evaluation Complexity Number of Personal Factors/Comorbidities 1-2 Number of Body Systems Impaired 4 or More Clinical Presentation at Evaluation Evolving Impairments Impairments Activity Tolerance,Balance, Edema,Functional Activities, Functional Mobility,Gait,Pain, ROM,Soft Tissue Mobility, Strength Goals Three Impairment Swelling Short Term Goal (STG) Amy will use swelling management techniques to decrease her swelling in her R foot to within 5 cm of her L. STG Duration 4 weeks Fpc Goal (LTG) Amy will work a 10 hour shift without pitting edema in her foot. LTG Duration 8 weeks Two Impairment Pain Short Term Goal (STG) Amy will ambuate with her walking boot with pain of 4/10 or less. STG Duration 4 weeks One Impairment Gait Short Term Goal (STG) Amy will ambulate with a sturdy shoe for 6 minutes over smooth terrain. STG Duration 4 weeks Fpc Goal (LTG) Amy will ascend 2 stairs with an alternating gait pattern. LTG Duration 8 weeks Assessment Summary Assessment Unfortunately weightbearing restrictions were not available to this therapist at the time of evaluation. We are making every effort to contact the referring provider 's office to get some protocol or progression of weightbearing, as the patient has only been walking in her boot, but states she is supposed to return to work on Sunday. She has significant swelling and very antalgic gait. She has not been wearing compression, icing, or using her night splint. She will benefit from physical therapy to maximize her gait and reduce swelling and pain, but her gait will likely be antalgic for a longer term than normal considering the number of joints that were fused and then length of time she was wearing a boot before surgery. Physical Therapy Plan Frequency and Duration Frequency of Treatment 2x/Week Duration of Treatment 8 weeks Plan of Care Start Date 03/02/21 Plan of Care End Date 04/27/21 Therapeutic Interventions Therapeutic Interventions Aquatic Therapy,Gait Training, Joint Mobilizations,Manual Therapy,Neuromuscular Re- education,Self-Care/Home Management,Soft Tissue Mobilization,Therapeutic Activities,Therapeutic Exercises Modalities Cold Pack/Ice Massage,Electric Stimulation,Hot Packs, Ultrasound Next Visit Focus/Plan Next Note Type Treatment Note Next Visit Plan What is the patient's weightbearing status? Manage swelling. Plan of Care Dates Plan of Care Start Date 03/02/21 Plan of Care End Date 04/27/21 Electronically Signed by: Shawna Scott, PT 03/02/21 [id number] Please Sign and Return: I have reviewed this Plan of Care and certify that the skilled therapy services above are required to meet the patient?s needs. Physician Signature Date Printed Name and Credentials Clinical Instructor Signature Printed Name and Credentials
--- NOTE | 2021-03-04 15:44 | PT.OTN ---
Current Diagnoses Primary osteoarthritis, right ankle and foot (03/04/21) Other instability, right foot (03/04/21) Achilles tendinitis, right leg (03/04/21) Physical Therapy Treatment Note PT-OP-A Visit Information Start: 03/02/21 11:00 Freq: Status: Active Protocol: Document 03/04/21 08:15 AMB (Rec: 03/04/21 15:44 AMB [email or web address]) Out-Patient Physical Therapy Visit Information Visit Information Visit Type Treatment Note Visit Start Time 08:15 Visit Stop Time 09:00 Total Visit Minutes 45 Visit Number 2 Precautions Precautions 50% WB PT-OP-B Current Condition Start: 03/02/21 11:00 Freq: Status: Active Protocol: Document 03/02/21 14:15 AMB (Rec: 03/02/21 16:13 AMB [id number]) Current Condition History of Current Condition Onset Date 12/24/20 Current Complaints foot pain/swelling/difficulty walking s/p fusion History of Current Condition Amy had a modified triple arthrodesis with talonavicular and cacaneocuboid joint fusion, fusion of naviculocuneiform and 1st, 2nd , 3rd TMT joints, advancement of posterior tibial tendon and gastrocnemius resection. 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 She has been wearing a boot at home, was originally using a kneeling walker, but now not using an assistive device. Has two steps to enter a single level home, lives alone. 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 Treatment Goals Patient/Caregiver Goals Reduce pain, walk normally Prior Functional Status Baseline Function- ADL's Modified Independent Baseline Function- Work/School Was working with a boot on due to pain for the past year Personal Factors Other Personal Factors That May Effect Crohn's disease multiple Therapy/Recovery surgeries to remove colon- has an ostomy, has been on methadone for years. PT-OP-C Subjective Start: 03/02/21 11:00 Freq: Status: Active Protocol: Document 03/04/21 08:15 AMB (Rec: 03/04/21 15:44 AMB [email or web address]) OP-PT Subjective Patient Comments Patient Comments Amy states pain is 4/10, hasn 't heard back from HR/MD yet about returnt to work, but may be happening on Sunday. PT-OP-F Manual Assessment Start: 03/02/21 11:00 Freq: Status: Active Protocol: Document 03/02/21 14:15 AMB (Rec: 03/02/21 16:25 AMB [id number]) Manual Assessments Soft Tissue Assessment Soft Tissue Mobility Assessment Tightness and pain with palpation throughout foot, at plantar fascia, at gastrocnemius. Does report numbness/tingling at medial forefoot. Warm throughout, good perfusion, tightness and adhesions at scars. Joint Mobility Assessment Joint Mobility Assessment Stiffness throughout foot, even at toes. PT-OP-G Mobility & Gait Start: 03/02/21 11:00 Freq: Status: Active Protocol: Document 03/02/21 14:15 AMB (Rec: 03/02/21 16:25 AMB [id number]) OP Gait Assessment Comments Gait Comments Antalgic gait- no AD, pt left boot in the car because it is hard to take on and off and she can't drive with it. Asked if she has been walking with the boot at home, says yes. Asked about weightbearing status, she is unsure. PT-OP-J Posture/Palpation/Skin Start: 03/02/21 11:00 Freq: Status: Active Protocol: Document 03/02/21 14:15 AMB (Rec: 03/02/21 16:25 AMB [id number]) Skin Assessment Edema Assessment Right Foot Edema Type Non-Pitting Edema Appearance Firm,Puffy,Shiny Subjective Edema Description Pain,Tightness Circumference Measurement 1 Location R ankle figure8 from mallelous under heel to lateral malleolus Measurement (Centimeters) 46 Comments R is 37 PT-OP-K Range of Motion Start: 03/02/21 11:00 Freq: Status: Active Protocol: Document 03/02/21 14:15 AMB (Rec: 03/02/21 16:25 AMB [id number]) Ankle and Foot Goniometric Range of Motion Ankle and Foot Left Passive Dorsiflexion with Knee Extended 5 Plantarflexion 50 Inversion 30 Eversion 20 Right Passive Testing Position Supine Plantarflexion 30 Inversion 10 Eversion 3 Comments missing 5 degrees of dorsiflexion- pt has night splint but has not been using it PT-OP-M Strength Start: 03/02/21 11:00 Freq: Status: Active Protocol: Document 03/02/21 14:15 AMB (Rec: 03/02/21 16:25 AMB [id number]) Ankle/Foot Strength Ankle and Foot Manual Muscle Testing Right Dorsiflexion (L4) 4- Good- Plantarflexion (S1) 2+ Poor+ PT-OP-Q Treatments Start: 03/02/21 11:00 Freq: Status: Active Protocol: Document 03/04/21 08:15 AMB (Rec: 03/04/21 15:44 AMB [email or web address]) Manual Therapy Treatment Soft Tissue Mobilization 1 Body Location scar management/edema management Comments instruction in timmy wrap, scar management, gastroc stretching , rolling over plantarfascia, gastroc. PT-OP-T Assessment and Plan Start: 03/02/21 11:00 Freq: Status: Active Protocol: Document 03/04/21 08:15 AMB (Rec: 03/04/21 15:44 AMB [email or web address]) Physical Therapy Assessment Goals Three Impairment Swelling Short Term Goal (STG) Amy will use swelling management techniques to decrease her swelling in her R foot to within 5 cm of her L. STG Duration 4 weeks Edger Feeder Goal (LTG) Amy will work a 10 hour shift without pitting edema in her foot. LTG Duration 8 weeks Two Impairment Pain Short Term Goal (STG) Amy will ambuate with her walking boot with pain of 4/10 or less. STG Duration 4 weeks One Impairment Gait Short Term Goal (STG) Amy will ambulate with a sturdy shoe for 6 minutes over smooth terrain. STG Duration 4 weeks Senior Living Goal (LTG) Amy will ascend 2 stairs with an alternating gait pattern. LTG Duration 8 weeks Assessment Summary Assessment Amy's pain management continues to be poor, instructed in self scar massage, would encourage pt to elevate foot throughout the day when she does return to work. Physical Therapy Plan Next Visit Focus/Plan Next Note Type Treatment Note Next Visit Plan Continue edema management, only weightbear 50% at this time when out of boot
--- NOTE | 2021-03-16 15:51 | PT.OTN ---
Current Diagnoses Primary osteoarthritis, right ankle and foot (03/16/21) Other instability, right foot (03/16/21) Achilles tendinitis, right leg (03/16/21) Physical Therapy Treatment Note PT-OP-A Visit Information Start: 03/02/21 11:00 Freq: Status: Active Protocol: Document 03/16/21 07:30 AMB (Rec: 03/16/21 08:46 AMB [id number]) Out-Patient Physical Therapy Visit Information Visit Information Visit Type Treatment Note Visit Start Time 07:30 Visit Stop Time 08:15 Total Visit Minutes 45 Visit Number 3 PT-OP-B Current Condition Start: 03/02/21 11:00 Freq: Status: Active Protocol: Document 03/02/21 14:15 AMB (Rec: 03/02/21 16:13 AMB [id number]) Current Condition History of Current Condition Onset Date 12/24/20 Current Complaints foot pain/swelling/difficulty walking s/p fusion History of Current Condition Amy had a modified triple arthrodesis with talonavicular and cacaneocuboid joint fusion, fusion of naviculocuneiform and 1st, 2nd , 3rd TMT joints, advancement of posterior tibial tendon and gastrocnemius resection. 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 She has been wearing a boot at home, was originally using a kneeling walker, but now not using an assistive device. Has two steps to enter a single level home, lives alone. 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 Treatment Goals Patient/Caregiver Goals Reduce pain, walk normally Prior Functional Status Baseline Function- ADL's Modified Independent Baseline Function- Work/School Was working with a boot on due to pain for the past year Personal Factors Other Personal Factors That May Effect Crohn's disease multiple Therapy/Recovery surgeries to remove colon- has an ostomy, has been on methadone for years. PT-OP-C Subjective Start: 03/02/21 11:00 Freq: Status: Active Protocol: Document 03/16/21 07:30 AMB (Rec: 03/16/21 15:51 AMB [id number]) OP-PT Subjective Patient Comments Patient Comments German wrap didn't work well after last visit. Gastroc is doing ok, but great toe is still stiff. Did go to work for 2.5 days, felt a pop over lateral ankle while in the boot on 3rd day and go the ok from MD to not work until she sees him on 03/25. PT-OP-F Manual Assessment Start: 03/02/21 11:00 Freq: Status: Active Protocol: Document 03/02/21 14:15 AMB (Rec: 03/02/21 16:25 AMB [id number]) Manual Assessments Soft Tissue Assessment Soft Tissue Mobility Assessment Tightness and pain with palpation throughout foot, at plantar fascia, at gastrocnemius. Does report numbness/tingling at medial forefoot. Warm throughout, good perfusion, tightness and adhesions at scars. Joint Mobility Assessment Joint Mobility Assessment Stiffness throughout foot, even at toes. PT-OP-G Mobility & Gait Start: 03/02/21 11:00 Freq: Status: Active Protocol: Document 03/02/21 14:15 AMB (Rec: 03/02/21 16:25 AMB [id number]) OP Gait Assessment Comments Gait Comments Antalgic gait- no AD, pt left boot in the car because it is hard to take on and off and she can't drive with it. Asked if she has been walking with the boot at home, says yes. Asked about weightbearing status, she is unsure. PT-OP-J Posture/Palpation/Skin Start: 03/02/21 11:00 Freq: Status: Active Protocol: Document 03/02/21 14:15 AMB (Rec: 03/02/21 16:25 AMB [id number]) Skin Assessment Edema Assessment Right Foot Edema Type Non-Pitting Edema Appearance Firm,Puffy,Shiny Subjective Edema Description Pain,Tightness Circumference Measurement 1 Location R ankle figure8 from mallelous under heel to lateral malleolus Measurement (Centimeters) 46 Comments R is 37 PT-OP-K Range of Motion Start: 03/02/21 11:00 Freq: Status: Active Protocol: Document 03/02/21 14:15 AMB (Rec: 03/02/21 16:25 AMB [id number]) Ankle and Foot Goniometric Range of Motion Ankle and Foot Left Passive Dorsiflexion with Knee Extended 5 Plantarflexion 50 Inversion 30 Eversion 20 Right Passive Testing Position Supine Plantarflexion 30 Inversion 10 Eversion 3 Comments missing 5 degrees of dorsiflexion- pt has night splint but has not been using it PT-OP-M Strength Start: 03/02/21 11:00 Freq: Status: Active Protocol: Document 03/02/21 14:15 AMB (Rec: 03/02/21 16:25 AMB [id number]) Ankle/Foot Strength Ankle and Foot Manual Muscle Testing Right Dorsiflexion (L4) 4- Good- Plantarflexion (S1) 2+ Poor+ PT-OP-Q Treatments Start: 03/02/21 11:00 Freq: Status: Active Protocol: Document 03/16/21 07:30 AMB (Rec: 03/16/21 15:51 AMB [id number]) Manual Therapy Treatment Soft Tissue Mobilization 1 Body Location scar management/edema management Comments scar management, gastroc stretching, rolling over plantarfascia, gastroc. Taping 1 Body Location 3 octopus over scars and up into ankle Treatment Focus edema management Type of Tape Kinesio Tape Skin Inspection 1 spot of psorasis next to scar Comments with biofreeze PT-OP-T Assessment and Plan Start: 03/02/21 11:00 Freq: Status: Active Protocol: Document 03/16/21 07:30 AMB (Rec: 03/16/21 15:51 AMB [id number]) Physical Therapy Assessment Goals Three Impairment Swelling Short Term Goal (STG) Amy will use swelling management techniques to decrease her swelling in her R foot to within 5 cm of her L. STG Duration 4 weeks Snf Goal (LTG) Amy will work a 10 hour shift without pitting edema in her foot. LTG Duration 8 weeks Two Impairment Pain Short Term Goal (STG) Amy will ambuate with her walking boot with pain of 4/10 or less. STG Duration 4 weeks One Impairment Gait Short Term Goal (STG) Amy will ambulate with a sturdy shoe for 6 minutes over smooth terrain. STG Duration 4 weeks Continuous Process Tanner Rotary Drum Goal (LTG) Amy will ascend 2 stairs with an alternating gait pattern. LTG Duration 8 weeks Assessment Summary Assessment Amy is continuing to have pain and swelling. Foot appeared more edematous today, with slight pitting at malleoli, pt is concerned about warmth in foot, but both feet felt equally warm to this therapist. Pt is seeing MD again on 03/25. Physical Therapy Plan Next Visit Focus/Plan Next Note Type Treatment Note Next Visit Plan Continue edema and scar management, follow up on compression options (could consider tubigrip since german wrap was not tolerated and pt does not feel she could put compression on independently) only weightbear 50% at this time when out of boot
--- NOTE | 2021-03-18 10:25 | PT.OTN ---
Current Diagnoses Primary osteoarthritis, right ankle and foot (03/18/21) Other instability, right foot (03/18/21) Achilles tendinitis, right leg (03/18/21) Physical Therapy Treatment Note PT-OP-A Visit Information Start: 03/02/21 11:00 Freq: Status: Active Protocol: Document 03/18/21 09:50 SP (Rec: 03/18/21 11:54 SP [id number]) Out-Patient Physical Therapy Visit Information Visit Information Visit Type Treatment Note Visit Note BAG MACHINE HELPER brought pt back 5 min late and pt reported needed to leave at 1025 due to attending a virtual Dr appt. Visit Start Time 09:50 Visit Stop Time 10:25 Total Visit Minutes 35 Visit Number 4 Number of BAG MACHINE HELPER Visits 1 Precautions Precautions 50% WB RLE. PT-OP-B Current Condition Start: 03/02/21 11:00 Freq: Status: Active Protocol: Document 03/02/21 14:15 AMB (Rec: 03/02/21 16:13 AMB [id number]) Current Condition History of Current Condition Onset Date 12/24/20 Current Complaints foot pain/swelling/difficulty walking s/p fusion History of Current Condition Amy had a modified triple arthrodesis with talonavicular and cacaneocuboid joint fusion, fusion of naviculocuneiform and 1st, 2nd , 3rd TMT joints, advancement of posterior tibial tendon and gastrocnemius resection. 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 She has been wearing a boot at home, was originally using a kneeling walker, but now not using an assistive device. Has two steps to enter a single level home, lives alone. 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 Treatment Goals Patient/Caregiver Goals Reduce pain, walk normally Prior Functional Status Baseline Function- ADL's Modified Independent Baseline Function- Work/School Was working with a boot on due to pain for the past year Personal Factors Other Personal Factors That May Effect Crohn's disease multiple Therapy/Recovery surgeries to remove colon- has an ostomy, has been on methadone for years. PT-OP-C Subjective Start: 03/02/21 11:00 Freq: Status: Active Protocol: Document 03/18/21 09:50 SP (Rec: 03/18/21 11:54 SP [id number]) OP-PT Subjective Patient Comments Patient Comments Pt arrived with walking boot donned with no AD and stated she had her general practioner appt and asked why she didn't have an AD knowing ortho recommended 50% WB. Pt stated does have an SPC and crutches at home will try using once gets back home today but her R UE RTC has a tear in it and thinks would cause more pain that already does. Pt stated concerned that R 1st MTP is relaxed into extension and wasn't before surgery. Pt stated the k tape helped alot but had to take off for her dr appt and would like it reapplied. PT-OP-F Manual Assessment Start: 03/02/21 11:00 Freq: Status: Active Protocol: Document 03/02/21 14:15 AMB (Rec: 03/02/21 16:25 AMB [id number]) Manual Assessments Soft Tissue Assessment Soft Tissue Mobility Assessment Tightness and pain with palpation throughout foot, at plantar fascia, at gastrocnemius. Does report numbness/tingling at medial forefoot. Warm throughout, good perfusion, tightness and adhesions at scars. Joint Mobility Assessment Joint Mobility Assessment Stiffness throughout foot, even at toes. PT-OP-G Mobility & Gait Start: 03/02/21 11:00 Freq: Status: Active Protocol: Document 03/02/21 14:15 AMB (Rec: 03/02/21 16:25 AMB [id number]) OP Gait Assessment Comments Gait Comments Antalgic gait- no AD, pt left boot in the car because it is hard to take on and off and she can't drive with it. Asked if she has been walking with the boot at home, says yes. Asked about weightbearing status, she is unsure. PT-OP-J Posture/Palpation/Skin Start: 03/02/21 11:00 Freq: Status: Active Protocol: Document 03/02/21 14:15 AMB (Rec: 03/02/21 16:25 AMB [id number]) Skin Assessment Edema Assessment Right Foot Edema Type Non-Pitting Edema Appearance Firm,Puffy,Shiny Subjective Edema Description Pain,Tightness Circumference Measurement 1 Location R ankle figure8 from mallelous under heel to lateral malleolus Measurement (Centimeters) 46 Comments R is 37 PT-OP-K Range of Motion Start: 03/02/21 11:00 Freq: Status: Active Protocol: Document 03/02/21 14:15 AMB (Rec: 03/02/21 16:25 AMB [id number]) Ankle and Foot Goniometric Range of Motion Ankle and Foot Left Passive Dorsiflexion with Knee Extended 5 Plantarflexion 50 Inversion 30 Eversion 20 Right Passive Testing Position Supine Plantarflexion 30 Inversion 10 Eversion 3 Comments missing 5 degrees of dorsiflexion- pt has night splint but has not been using it PT-OP-M Strength Start: 03/02/21 11:00 Freq: Status: Active Protocol: Document 03/02/21 14:15 AMB (Rec: 03/02/21 16:25 AMB [id number]) Ankle/Foot Strength Ankle and Foot Manual Muscle Testing Right Dorsiflexion (L4) 4- Good- Plantarflexion (S1) 2+ Poor+ PT-OP-Q Treatments Start: 03/02/21 11:00 Freq: Status: Active Protocol: Document 03/18/21 09:50 SP (Rec: 03/18/21 11:54 SP [id number]) Therapeutic Exercises Supine Exercises MTP flexion Supine Exercise Name 1-5 - added to HEP Side right Equipment Used towel Reps/Minutes 2x10 Comments improved R 1st MTP flexion ROM ankle ROM Supine Exercise Name DF, PF (can not perform IV/EV at this time) Side right Resistance AROM Reps/Minutes 2x10 Manual Therapy Treatment Soft Tissue Mobilization 1 Body Location scar management/edema management Comments scar management, gastroc stretching, rolling over plantarfascia, gastroc. Instruction on self application. Joint Mobilizations MTP Joint 1-5 Direction AP, PA, med/ lat rotation Grade II Body Position Sitting Reps/Duration 8 min Comments long sitting, responded little sore but felt helpful. Instruction on self application RLE over LLE knee sitting. Taping 1 Body Location 3 octopus over scars and up into ankle Treatment Focus edema management Type of Tape Kinesio Tape Skin Inspection 1 spot of psorasis next to scar Comments with biofreeze PT-OP-T Assessment and Plan Start: 03/02/21 11:00 Freq: Status: Active Protocol: Document 03/18/21 09:50 SP (Rec: 03/18/21 11:54 SP [id number]) Physical Therapy Assessment Goals Three Impairment Swelling Short Term Goal (STG) Amy will use swelling management techniques to decrease her swelling in her R foot to within 5 cm of her L. STG Duration 4 weeks Warehouse Coordinator Goal (LTG) Amy will work a 10 hour shift without pitting edema in her foot. LTG Duration 8 weeks Two Impairment Pain Short Term Goal (STG) Amy will ambuate with her walking boot with pain of 4/10 or less. STG Duration 4 weeks One Impairment Gait Short Term Goal (STG) Amy will ambulate with a sturdy shoe for 6 minutes over smooth terrain. STG Duration 4 weeks Warehouse Coordinator Goal (LTG) Amy will ascend 2 stairs with an alternating gait pattern. LTG Duration 8 weeks Assessment Summary Assessment Pt responded well to K taping for swelling mgt, it helped alot more. Instructed with pt long sitting so can reapply if needs over the weekend and education on importance of self STMS, mobs and scar mobility. Initiated intrinic MTPs flexion and manual ROM if wished to improved mobility. Pt is demonstrating 100% WB, discussed use of crutch to assist provide support and maintain precautions of 50% in boot. Pt stated has a crutch at home and will start using it. Pt has follow up appt on Sun with ortho and suggested inquire with documentation to support for all awareness for feedback in WB status safety for healing at this time. Pt had to leave early for telehealth appt 1025 today. Physical Therapy Plan Frequency and Duration Frequency of Treatment 2x/Week Duration of Treatment 8 weeks Plan of Care Start Date 03/02/21 Plan of Care End Date 04/27/21 Therapeutic Interventions Therapeutic Interventions Aquatic Therapy,Gait Training, Joint Mobilizations,Manual Therapy,Neuromuscular Re- education,Self-Care/Home Management,Soft Tissue Mobilization,Therapeutic Activities,Therapeutic Exercises Modalities Cold Pack/Ice Massage,Electric Stimulation,Hot Packs, Ultrasound Next Visit Focus/Plan Next Note Type Treatment Note Next Visit Plan Continue edema and scar management, K taping, follow up on compression options next tx (could consider tubigrip since timmy wrap was not tolerated and pt does not feel she could put compression on independently) only weightbear 50% at this time when out of boot
--- NOTE | 2021-03-21 08:23 | PT.OTN ---
Current Diagnoses Primary osteoarthritis, right ankle and foot (03/21/21) Other instability, right foot (03/21/21) Achilles tendinitis, right leg (03/21/21) Physical Therapy Treatment Note PT-OP-A Visit Information Start: 03/02/21 11:00 Freq: Status: Active Protocol: Document 03/21/21 07:32 SP (Rec: 03/21/21 12:18 SP [id number]) Out-Patient Physical Therapy Visit Information Visit Information Visit Type Treatment Note Visit Start Time 07:32 Visit Stop Time 08:23 Total Visit Minutes 51 Visit Number 5 Number of CHROME CLEANER Visits 2 Precautions Precautions 50% WB RLE. PT-OP-B Current Condition Start: 03/02/21 11:00 Freq: Status: Active Protocol: Document 03/02/21 14:15 AMB (Rec: 03/02/21 16:13 AMB [id number]) Current Condition History of Current Condition Onset Date 12/24/20 Current Complaints foot pain/swelling/difficulty walking s/p fusion History of Current Condition Amy had a modified triple arthrodesis with talonavicular and cacaneocuboid joint fusion, fusion of naviculocuneiform and 1st, 2nd , 3rd TMT joints, advancement of posterior tibial tendon and gastrocnemius resection. 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 She has been wearing a boot at home, was originally using a kneeling walker, but now not using an assistive device. Has two steps to enter a single level home, lives alone. 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 Treatment Goals Patient/Caregiver Goals Reduce pain, walk normally Prior Functional Status Baseline Function- ADL's Modified Independent Baseline Function- Work/School Was working with a boot on due to pain for the past year Personal Factors Other Personal Factors That May Effect Crohn's disease multiple Therapy/Recovery surgeries to remove colon- has an ostomy, has been on methadone for years. PT-OP-C Subjective Start: 03/02/21 11:00 Freq: Status: Active Protocol: Document 03/21/21 07:32 SP (Rec: 03/21/21 12:18 SP [id number]) OP-PT Subjective Patient Comments Patient Comments Pt stated the smaller taping didn't improve swelling last tx, want taping today to be more coverage to lower mason. Pt stated has ortho F/U this coming 03/25 and will ask about updates for WB but has been doing 100% and doesn't hurt with boot donned and no AD. Pt stated is still concerned of L 1st MTP extension in relaxed position that wasn't like this pre surgery and base head MTP wearing out her insole and uncomfortable walking on more. Patient Reported Progress Improving PT-OP-F Manual Assessment Start: 03/02/21 11:00 Freq: Status: Active Protocol: Document 03/02/21 14:15 AMB (Rec: 03/02/21 16:25 AMB [id number]) Manual Assessments Soft Tissue Assessment Soft Tissue Mobility Assessment Tightness and pain with palpation throughout foot, at plantar fascia, at gastrocnemius. Does report numbness/tingling at medial forefoot. Warm throughout, good perfusion, tightness and adhesions at scars. Joint Mobility Assessment Joint Mobility Assessment Stiffness throughout foot, even at toes. PT-OP-G Mobility & Gait Start: 03/02/21 11:00 Freq: Status: Active Protocol: Document 03/02/21 14:15 AMB (Rec: 03/02/21 16:25 AMB [id number]) OP Gait Assessment Comments Gait Comments Antalgic gait- no AD, pt left boot in the car because it is hard to take on and off and she can't drive with it. Asked if she has been walking with the boot at home, says yes. Asked about weightbearing status, she is unsure. PT-OP-J Posture/Palpation/Skin Start: 03/02/21 11:00 Freq: Status: Active Protocol: Document 03/02/21 14:15 AMB (Rec: 03/02/21 16:25 AMB [id number]) Skin Assessment Edema Assessment Right Foot Edema Type Non-Pitting Edema Appearance Firm,Puffy,Shiny Subjective Edema Description Pain,Tightness Circumference Measurement 1 Location R ankle figure8 from mallelous under heel to lateral malleolus Measurement (Centimeters) 46 Comments R is 37 PT-OP-K Range of Motion Start: 03/02/21 11:00 Freq: Status: Active Protocol: Document 03/02/21 14:15 AMB (Rec: 03/02/21 16:25 AMB [id number]) Ankle and Foot Goniometric Range of Motion Ankle and Foot Left Passive Dorsiflexion with Knee Extended 5 Plantarflexion 50 Inversion 30 Eversion 20 Right Passive Testing Position Supine Plantarflexion 30 Inversion 10 Eversion 3 Comments missing 5 degrees of dorsiflexion- pt has night splint but has not been using it PT-OP-M Strength Start: 03/02/21 11:00 Freq: Status: Active Protocol: Document 03/02/21 14:15 AMB (Rec: 03/02/21 16:25 AMB [id number]) Ankle/Foot Strength Ankle and Foot Manual Muscle Testing Right Dorsiflexion (L4) 4- Good- Plantarflexion (S1) 2+ Poor+ PT-OP-Q Treatments Start: 03/02/21 11:00 Freq: Status: Active Protocol: Document 03/21/21 07:32 SP (Rec: 03/21/21 12:18 SP [id number]) Therapeutic Exercises Supine Exercises MTP flexion Supine Exercise Name 1-5 hammock PF, eccentrict DF Side right Resistance TB #1 (added Tb this tx) Reps/Minutes 2x10 Comments improved R 1st MTP flexion and DF ROM Sitting Exercises BAPS Sitting Exercise Name PF, DF, IV, EV (CW/ CCW next tx) Side right Resistance #4 Reps/Minutes x10 each direction toe flexion arch lift Sitting Exercise Name MTP flexion and ext w/ intrinsic lift Side right Resistance AROM Reps/Minutes 2x10 Comments improved tarsal movement lift Manual Therapy Treatment Soft Tissue Mobilization 1 Body Location scar management/edema management Comments scar management, gastroc stretching, rolling over plantarfascia, gastroc. Instruction on self application. Joint Mobilizations MTP Joint 1-5 Direction AP, PA, med/ lat rotation Grade II Body Position Sitting Reps/Duration 8 min Comments long sitting, responded little sore but felt helpful. Instruction on self application RLE over LLE knee sitting. Taping 1 Body Location 3 Long octopus over scars and up ankle onto lower mason Treatment Focus edema management Type of Tape Kinesio Tape Skin Inspection 1 spot of psorasis next to scar Comments with biofreeze Self-Care/Home Management Treatment Education Patient Education Body Mechanics,Joint Protection,Safety Other Education Discussed use of crutch for assist 50% WB using boot per physican recommendations with verbal understanding- has crutches at home. PT-OP-T Assessment and Plan Start: 03/02/21 11:00 Freq: Status: Active Protocol: Document 03/21/21 07:32 SP (Rec: 03/21/21 12:18 SP [id number]) Physical Therapy Assessment Goals Three Impairment Swelling Short Term Goal (STG) Amy will use swelling management techniques to decrease her swelling in her R foot to within 5 cm of her L. 03/21/21: progressing: noted decrease in swelling of L ankle and able to move foot better. She has K tape to reapply if needed and ROM, massage to help decrease swelling. STG Duration 4 weeks Long-Term Goal (LTG) Amy will work a 10 hour shift without pitting edema in her foot. LTG Duration 8 weeks Two Impairment Pain Short Term Goal (STG) Amy will ambuate with her walking boot with pain of 4/10 or less. STG Duration 4 weeks One Impairment Gait Short Term Goal (STG) Amy will ambulate with a sturdy shoe for 6 minutes over smooth terrain. 03/21/21: ambulates w/walking boot 100% WB, has ortho follow up 03/25/21. STG Duration 4 weeks Infrastructure Software Engineer Goal (LTG) Amy will ascend 2 stairs with an alternating gait pattern. LTG Duration 8 weeks Assessment Summary Assessment Pt arrives with reduction in swelling continues with ability to see ankle agustin. She demonstrates improvement in ankle AROM ex and arch lift not as challenging. Pt tolerated initiation TB toe & ankle PF w/ eccentric DF ROM, BAPS ankle AROM (suggested performing over tennis ball as HEP with good demonstration), able to view musculature engagement in IV/ EV to control movement, painfree. Reapplied k taping end of tx to continue assist lymphatic return. Physical Therapy Plan Frequency and Duration Frequency of Treatment 2x/Week Duration of Treatment 8 weeks Plan of Care Start Date 03/02/21 Plan of Care End Date 04/27/21 Therapeutic Interventions Therapeutic Interventions Aquatic Therapy,Gait Training, Joint Mobilizations,Manual Therapy,Neuromuscular Re- education,Self-Care/Home Management,Soft Tissue Mobilization,Therapeutic Activities,Therapeutic Exercises Modalities Cold Pack/Ice Massage,Electric Stimulation,Hot Packs, Ultrasound Next Visit Focus/Plan Next Note Type Treatment Note Next Visit Plan Continue edema and scar management, K taping, HEP review (performed in last tx) follow up on compression options next tx (see if she can put compression on independently at this time), continue review safety use of crutch only weightbear 50% precautions at this time when out of boot until F/U physician 03/25/21.
--- NOTE | 2021-03-25 10:48 | PT.OTN ---
Current Diagnoses Primary osteoarthritis, right ankle and foot (03/25/21) Other instability, right foot (03/25/21) Achilles tendinitis, right leg (03/25/21) Physical Therapy Treatment Note PT-OP-A Visit Information Start: 03/02/21 11:00 Freq: Status: Active Protocol: Document 03/25/21 07:30 AMB (Rec: 03/25/21 10:48 AMB [id number]) Out-Patient Physical Therapy Visit Information Visit Information Visit Type Treatment Note Visit Start Time 07:30 Visit Stop Time 08:15 Total Visit Minutes 45 Visit Number 6 Number of TRAVEL REGISTERED NURSE ICU Visits 1 PT-OP-B Current Condition Start: 03/02/21 11:00 Freq: Status: Active Protocol: Document 03/02/21 14:15 AMB (Rec: 03/02/21 16:13 AMB [id number]) Current Condition History of Current Condition Onset Date 12/24/20 Current Complaints foot pain/swelling/difficulty walking s/p fusion History of Current Condition Amy had a modified triple arthrodesis with talonavicular and cacaneocuboid joint fusion, fusion of naviculocuneiform and 1st, 2nd , 3rd TMT joints, advancement of posterior tibial tendon and gastrocnemius resection. 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 She has been wearing a boot at home, was originally using a kneeling walker, but now not using an assistive device. Has two steps to enter a single level home, lives alone. 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 Treatment Goals Patient/Caregiver Goals Reduce pain, walk normally Prior Functional Status Baseline Function- ADL's Modified Independent Baseline Function- Work/School Was working with a boot on due to pain for the past year Personal Factors Other Personal Factors That May Effect Crohn's disease multiple Therapy/Recovery surgeries to remove colon- has an ostomy, has been on methadone for years. PT-OP-C Subjective Start: 03/02/21 11:00 Freq: Status: Active Protocol: Document 03/25/21 07:30 AMB (Rec: 03/25/21 10:48 AMB [id number]) OP-PT Subjective Patient Comments Patient Comments Pt attends in slipper, bringing boot with. She does have an appt with MD today. 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 PT-OP-F Manual Assessment Start: 03/02/21 11:00 Freq: Status: Active Protocol: Document 03/02/21 14:15 AMB (Rec: 03/02/21 16:25 AMB [id number]) Manual Assessments Soft Tissue Assessment Soft Tissue Mobility Assessment Tightness and pain with palpation throughout foot, at plantar fascia, at gastrocnemius. Does report numbness/tingling at medial forefoot. Warm throughout, good perfusion, tightness and adhesions at scars. Joint Mobility Assessment Joint Mobility Assessment Stiffness throughout foot, even at toes. PT-OP-G Mobility & Gait Start: 03/02/21 11:00 Freq: Status: Active Protocol: Document 03/02/21 14:15 AMB (Rec: 03/02/21 16:25 AMB [id number]) OP Gait Assessment Comments Gait Comments Antalgic gait- no AD, pt left boot in the car because it is hard to take on and off and she can't drive with it. Asked if she has been walking with the boot at home, says yes. Asked about weightbearing status, she is unsure. PT-OP-J Posture/Palpation/Skin Start: 03/02/21 11:00 Freq: Status: Active Protocol: Document 03/02/21 14:15 AMB (Rec: 03/02/21 16:25 AMB [id number]) Skin Assessment Edema Assessment Right Foot Edema Type Non-Pitting Edema Appearance Firm,Puffy,Shiny Subjective Edema Description Pain,Tightness Circumference Measurement 1 Location R ankle figure8 from mallelous under heel to lateral malleolus Measurement (Centimeters) 46 Comments R is 37 PT-OP-K Range of Motion Start: 03/02/21 11:00 Freq: Status: Active Protocol: Document 03/02/21 14:15 AMB (Rec: 03/02/21 16:25 AMB [id number]) Ankle and Foot Goniometric Range of Motion Ankle and Foot Left Passive Dorsiflexion with Knee Extended 5 Plantarflexion 50 Inversion 30 Eversion 20 Right Passive Testing Position Supine Plantarflexion 30 Inversion 10 Eversion 3 Comments missing 5 degrees of dorsiflexion- pt has night splint but has not been using it PT-OP-M Strength Start: 03/02/21 11:00 Freq: Status: Active Protocol: Document 03/02/21 14:15 AMB (Rec: 03/02/21 16:25 AMB [id number]) Ankle/Foot Strength Ankle and Foot Manual Muscle Testing Right Dorsiflexion (L4) 4- Good- Plantarflexion (S1) 2+ Poor+ PT-OP-Q Treatments Start: 03/02/21 11:00 Freq: Status: Active Protocol: Document 03/25/21 07:30 AMB (Rec: 03/25/21 10:48 AMB [id number]) Therapeutic Exercises Supine Exercises ankle ROM Supine Exercise Name gastroc stretch Reps/Minutes 30x3 Sitting Exercises toe flexion arch lift Sitting Exercise Name MTP flexion and ext w/ intrinsic lift Side right Resistance AROM Reps/Minutes 2x10 Manual Therapy Treatment Soft Tissue Mobilization 1 Body Location scar management/edema management Comments scar management, gastroc stretching, rolling over plantarfascia, gastroc. Instruction on self application. Taping 1 Body Location 3 Long octopus over scars and up ankle onto lower mason Treatment Focus edema management Type of Tape Kinesio Tape Skin Inspection 1 spot of psorasis next to scar Comments with biofreeze PT-OP-T Assessment and Plan Start: 03/02/21 11:00 Freq: Status: Active Protocol: Document 03/25/21 07:30 AMB (Rec: 03/25/21 10:48 AMB [id number]) Physical Therapy Assessment Assessment Summary Assessment Swelling continues to improve, although pt has been working and it is early in the morning . Pt did attend PT in slipper today stating that she was running late, and Physical Therapy Plan Next Visit Focus/Plan Next Note Type Treatment Note Next Visit Plan Follow up on visit to ortho re : weightbearing restrictions/ return to work, scheduling. Continue edema and scar management, K taping, HEP review (performed in last tx) follow up on compression options next tx (see if she can put compression on independently at this time), continue review safety use of crutch only weightbear 50% precautions at this time when out of boot until F/U physician 03/25/21.
--- NOTE | 2021-04-01 15:56 | PT.OPDS ---
Current Diagnoses Primary osteoarthritis, right ankle and foot (03/25/21) Other instability, right foot (03/25/21) Achilles tendinitis, right leg (03/25/21) Visit Care Team Role Provider Type Maninder Hubbard DO Primary Care Provider Non-Staff Specialty: Family Practice Address: [address] [place] [address], [id number] Email: Vernon Hampton DPM Attending Provider Non-Staff Referring Provider Specialty: Podiatry Address: [address] [place] [address], [id number] Email: Visit Number Visit Number 6 Discharge Summary PT-OP-B Current Condition Start: 03/02/21 11:00 Freq: Status: Active Protocol: Document 03/02/21 14:15 AMB (Rec: 03/02/21 16:13 AMB [id number]) Current Condition History of Current Condition Onset Date 12/24/20 Current Complaints foot pain/swelling/difficulty walking s/p fusion History of Current Condition Amy had a modified triple arthrodesis with talonavicular and cacaneocuboid joint fusion, fusion of naviculocuneiform and 1st, 2nd , 3rd TMT joints, advancement of posterior tibial tendon and gastrocnemius resection. 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 She has been wearing a boot at home, was originally using a kneeling walker, but now not using an assistive device. Has two steps to enter a single level home, lives alone. 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 Treatment Goals Patient/Caregiver Goals Reduce pain, walk normally Prior Functional Status Baseline Function- ADL's Modified Independent Baseline Function- Work/School Was working with a boot on due to pain for the past year Personal Factors Other Personal Factors That May Effect Crohn's disease multiple Therapy/Recovery surgeries to remove colon- has an ostomy, has been on methadone for years. PT-OP-C Subjective Start: 03/02/21 11:00 Freq: Status: Active Protocol: Document 03/25/21 07:30 AMB (Rec: 03/25/21 10:48 AMB [id number]) OP-PT Subjective Patient Comments Patient Comments Pt attends in slipper, bringing boot with. She does have an appt with MD today. 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 PT-OP-F Manual Assessment Start: 03/02/21 11:00 Freq: Status: Active Protocol: Document 03/02/21 14:15 AMB (Rec: 03/02/21 16:25 AMB [id number]) Manual Assessments Soft Tissue Assessment Soft Tissue Mobility Assessment Tightness and pain with palpation throughout foot, at plantar fascia, at gastrocnemius. Does report numbness/tingling at medial forefoot. Warm throughout, good perfusion, tightness and adhesions at scars. Joint Mobility Assessment Joint Mobility Assessment Stiffness throughout foot, even at toes. PT-OP-G Mobility & Gait Start: 03/02/21 11:00 Freq: Status: Active Protocol: Document 03/02/21 14:15 AMB (Rec: 03/02/21 16:25 AMB [id number]) OP Gait Assessment Comments Gait Comments Antalgic gait- no AD, pt left boot in the car because it is hard to take on and off and she can't drive with it. Asked if she has been walking with the boot at home, says yes. Asked about weightbearing status, she is unsure. PT-OP-J Posture/Palpation/Skin Start: 03/02/21 11:00 Freq: Status: Active Protocol: Document 03/02/21 14:15 AMB (Rec: 03/02/21 16:25 AMB [id number]) Skin Assessment Edema Assessment Right Foot Edema Type Non-Pitting Edema Appearance Firm,Puffy,Shiny Subjective Edema Description Pain,Tightness Circumference Measurement 1 Location R ankle figure8 from mallelous under heel to lateral malleolus Measurement (Centimeters) 46 Comments R is 37 PT-OP-K Range of Motion Start: 03/02/21 11:00 Freq: Status: Active Protocol: Document 03/02/21 14:15 AMB (Rec: 03/02/21 16:25 AMB [id number]) Ankle and Foot Goniometric Range of Motion Ankle and Foot Left Passive Dorsiflexion with Knee Extended 5 Plantarflexion 50 Inversion 30 Eversion 20 Right Passive Testing Position Supine Plantarflexion 30 Inversion 10 Eversion 3 Comments missing 5 degrees of dorsiflexion- pt has night splint but has not been using it PT-OP-M Strength Start: 03/02/21 11:00 Freq: Status: Active Protocol: Document 03/02/21 14:15 AMB (Rec: 03/02/21 16:25 AMB [id number]) Ankle/Foot Strength Ankle and Foot Manual Muscle Testing Right Dorsiflexion (L4) 4- Good- Plantarflexion (S1) 2+ Poor+ PT-OP-T Assessment and Plan Start: 03/02/21 11:00 Freq: Status: Active Protocol: Document 04/01/21 15:55 AMB (Rec: 04/01/21 15:56 AMB [id number]) Physical Therapy Plan Discharge Physical Therapy Discharge Reasons Change in Medical Status Discharge Comments Pt canceled her remaining appointments because a screw is loose and she was instructed to return to non- weightbearing. she may need follow up surgery. She would be welcome to return when she is medically ready, but would very much encourage her to explicitly follow her weighbearing precautions in the future.
== END 2021-04-04 08:46 | disposition home or self-care (01) ==
LOC: PHYS 07:30
PROVIDERS: PCP Family Medicine; Referring Provider Podiatrist Foot & Ankle Surgery; Visit Provider Podiatrist Foot & Ankle Surgery
DX: M19.071 Primary osteoarthritis, right ankle and foot (principal); M25.374 Other instability, right foot; M76.61 Achilles tendinitis, right leg
CPT/HCPCS: 97110; 97140; 97162

== ENCOUNTER → 2021-04-13 13:02 | Outpatient (CLI) | payer OTHER, SELFPAY ==
[2021-04-13 14:47] LABS: Add Manual Diff / Slide Review NO; Basophils Absolute Auto 0 /uL (0-100); Basophils Percent Auto 0.7 % (0-2); Eosinophils Absolute Auto 100 /uL (0-450); Eosinophils Percent Auto 1.8 % (2-4); Hematocrit 36.9 % (36-46); Hemoglobin 12.5 g/dL (12.0-16.0); Lymphocytes Absolute Auto 1300 /uL (1100-4500); Lymphocytes Percent Auto 28.4 % (25-40); Mean Corpuscular HGB Conc 33.9 % (30-36); Mean Corpuscular Volume 94.3 fL (80-100); Monocytes Absolute Auto 300 /uL (0-900); Monocytes Percent Auto 6.7 % (3-14); Neutrophils Absolute Auto 2900 /uL (1500-7000); Neutrophils Percent Auto 62.4 % (50-75); Platelet Count 221 X10^3/uL (150-400); Red Blood Cell Count 3.91 X10^6/uL (4.0-5.2); White Blood Cell Count 4.7 X10^3/uL (4.5-11.0)
[2021-04-13 15:07] LABS: Erythrocyte Sedimentation Rate 45 MM/HR (0-20)
[2021-04-13 15:16] LABS: Alanine Aminotransferase 26 IU/L (<35); Albumin 4.2 g/dL (3.5-5.0); Albumin Globulin Ratio 0.9 (1.0-2.8); Alkaline Phosphatase 102 U/L (38-126); Aspartate Aminotransferase 41 IU/L (14-36); BUN Creatinine Ratio 21.9 (6-22); Bilirubin Total 0.5 mg/dL (0.2-1.3); Blood Urea Nitrogen 16 mg/dL (7-17); C-Reactive Protein Quant < 0.5 mg/dL (<1.0); Calcium 9.3 mg/dL (8.4-10.2); Carbon Dioxide 31 mmol/L (22-32); Chloride 102 mmol/L (98-107); Estimated Glomerular Filt Rate > 60.0 mL/min (>60); Globulin 4.7 g/dL (1.7-4.1); Glucose 86 mg/dL (70-100); HEMOLYSIS < 15 (0-50); Potassium 3.9 mmol/L (3.4-5.1); Sodium 140 mmol/L (137-145); Total Protein 8.9 g/dL (6.3-8.2)
== END ==
PROVIDERS: PCP Family Medicine; Referring Provider Podiatrist Foot & Ankle Surgery; Visit Provider Podiatrist Foot & Ankle Surgery
DX: L40.50 Arthropathic psoriasis, unspecified (principal); S92.901K Unspecified fracture of right foot, subsequent encounter for fracture with nonunion
CPT/HCPCS: 36415; 80053; 82306; 85025; 85651; 86140